=== PATIENT | female | born 1980 | race Caucasian/White ===

== ENCOUNTER → 2018-06-07 | Outpatient (CLI) | payer OTHER ==
[~2018-06-07] MED LIST: AMOXICILLIN500 MG PO; CLARITIN10 MG PO; DIFLUCAN150 MG PO; FLONASE ALLERG9.9 ML NAS; NORCO 5-325 TA1 EACH PO; PENICILLIN-VK500 MG PO; PREDNISONE10 MG PO; ULTRAM50 MG PO; VENTOLIN H0.09 MG/AC INH; ZITHROMAX250 MG PO
--- NOTE | ~2018-06-07 | EKG ---
[place], [place] ELECTROCARDIOGRAM REPORT NAME: IVONNE SANTOS UNIT #: [id number] ROOM: DOCTOR: SWAPNA DRAFT REPORT BIRTHDATE: [birth year] [facility] Test Date: 2018-06-07 Test Time: 09:02:10 Pat Name: IVONNE SANTOS Department: Room: Gender: F Piling Setter: Imelda Perez : 1980 Requested By: THEA BONILLA Order Number: [id number] Reading MD: Edgar Thorpe MD Measurements Intervals [place] Rate: 58 P: 58 WA: 144 QRS: -41 QRSD: 99 T: 31 QT: 416 QTc: 409 Interpretive Statements Sinus rhythm Probable left atrial enlargement Left axis deviation Low voltage, extremity and precordial leads No previous ECG available for comparison Electronically Signed On 06-07-2018 14:10:33 PST by Edgar Thorpe MD CM:EKGRPT:ELECTROCARDIOGRAM REPORT 1410 THEA BARCENAS DRAFT REPORT THEA BONILLA
== END | disposition home or self-care (01) ==
LOC: CARD 08:50
DX: Z51.81 Encounter for therapeutic drug level monitoring (principal); F15.90 Other stimulant use, unspecified, uncomplicated; Z79.899 Other long term (current) drug therapy

== ENCOUNTER → 2020-02-17 | Outpatient (CLI) | payer OTHER | END | disposition home or self-care (01) | LOC: CARD 11:05 | DX: Z51.81 Encounter for therapeutic drug level monitoring (principal); Z79.899 Other long term (current) drug therapy ==

== ENCOUNTER → 2021-03-02 | Outpatient (CLI) | payer OTHER | END | disposition home or self-care (01) | LOC: COVID19 14:55 | PROVIDERS: ATTEND Internal Medicine | DX: Z11.52 Encounter for screening for COVID-19 (principal) ==